=== PATIENT | female | born 1995 | race Caucasian/White ===

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

== ENCOUNTER 2017-08-29 03:44 | Emergency (ER) | payer BC ==
[2017-08-29] MEDS ORDERED: Acetaminophen TAB* 325 MG PO ONE (04:44)
[2017-08-29] MEDS ORDERED: Insulin REGULAR(*) 1 UNITS UNIT IV PUSH ONE ×2 (04:44→06:27)
[2017-08-29] MEDS ORDERED: Metoclopramide IV* 5 MG/ML 2 ML VIAL IV SLOW PU ONE (04:44)
[2017-08-29] MEDS ORDERED: NS 0.9% 1000 ML* 1,000 ML IV ONE (04:45)
[2017-08-29] MEDS ORDERED: Ketorolac INJ* 30 MG/ML 1 ML VIAL IV PUSH ONE (04:45)
[2017-08-29 05:19] LABS: ABS Basophils 0.1 10^3/ul (0-0.2); ABS Eosinophils 0.2 10^3/ul (0-0.6); ABS Lymphocytes 3.2 10^3/ul (1.0-4.8); ABS Monocytes 0.4 10^3/ul (0-0.8); ABS Neutrophils 4.3 10^3/ul (1.5-7.7); ABS Nucleated RBC 0 10^3/ul; Eosinophil % 2.3 % (0-6); Hematocrit 44 % (35-47); Hemoglobin 15.4 g/dl (12.0-16.0); Lymphocyte % 39.1 % (25-47); Mean Corpuscular HGB Conc 35 g/dl (31-36); Mean Corpuscular Hemoglobin 30 pg (27-31); Mean Corpuscular Volume 86 fL (80-97); Mean Platelet Volume 7.9 um3 (7.4-10.4); Nucleated Red Blood Cells % 0.1; Platelet Count 379 10^3/ul (150-450); Red Blood Count 5.07 10^6/ul (4.0-5.4); Red Cell Distribution Width 13 % (10.5-15); White Blood Count 8.1 10^3/ul (3.5-10.8)
[2017-08-29 05:34] LABS: EGFR Non-African American 106.7 (>60)
[2017-08-29 06:04] LABS: Urine Appearance Clear; Urine Blood Negative (Negative); Urine Color Yellow; Urine Ketones 2+ (Negative); Urine Protein Negative (Negative); Urine Specific Gravity 1.038 (1.010-1.030); Urine Urobilinogen Negative (Negative)
[2017-08-29] MEDS ORDERED: Insulin REGULAR(*) 1 UNITS UNIT ONE (06:29)
--- NOTE | 2017-08-29 07:00 | ED ---
Eron Mckeon Thomas, scribed for Debi Sanchez MD on 08/29/17 at 0522 . HPI Diabetic - HPI Summary HPI Summary: The patient is a 22 year old female with a history of Type I DM that developed symptoms of headache, diffuse body aches, intermittent nausea, burning to her chest, and feeling off that began yesterday at approximately 21:00. She denies fever, sore throat, and vomiting. - History Of Current Complaint Chief Complaint: EDHeadache Time Seen by Provider: 08/29/17 04:40 Hx Obtained From: Patient Hx Last Menstrual Period: CURRENT Onset/Duration: Lasting Hours, Still Present Timing: Constant Severity Currently: Moderate Character: Alert Aggravating: Nothing Alleviating: Nothing Associated Signs & Symptoms: Negative - fever, sore throat, vomiting, Nausea Related History: DM I - Allergies/Home Medications Allergies/Adverse Reactions: Allergies Allergy/AdvReac Type Severity Reaction Status Date / Time No Known Allergies Allergy Verified 08/29/17 04:42 PMH/Surg Hx/FS Hx/Imm Hx Endocrine/Hematology History: Reports: Hx Diabetes - DM Type I Respiratory History: Reports: Hx Asthma - OUTGROWN Musculoskeletal History: Denies: Hx Rheumatoid Arthritis, Hx Osteoporosis Sensory History: Denies: Hx Contacts or Glasses, Hx Hearing Aid Opthamlomology History: Denies: Hx Contacts or Glasses Neurological History: Reports: Hx Migraine - OCCASIONAL - Surgical History Surgery Procedure, Year, and Place: nasal repair after fracture - Immunization History Date of Tetanus Vaccine: utd Date of Influenza Vaccine: utd Infectious Disease History: Denies: History Other Infectious Disease, Traveled Outside the [place] in Last 30 Days - Family History Known Family History: Positive: Diabetes - Uncles x 2 - Social History Alcohol Use: None Substance Use Type: Reports: None Smoking Status (MU): Never Smoked Tobacco Review of Systems Positive: Other - "feeling off". Negative: Fever Negative: Sore Throat Positive: Other - Chest burning Positive: Nausea. Negative: Vomiting Positive: Other - Body aches All Other Systems Reviewed And Are Negative: Yes Physical Exam - Summary Physical Exam Summary: VITAL SIGNS: Reviewed. GENERAL: Patient is a well-developed and nourished female who is lying comfortable in the stretcher. Patient is not in any acute respiratory distress. HEAD AND FACE: No signs of trauma. No ecchymosis, hematomas or skull depressions. No sinus tenderness. EYES: PERRLA, EOMI x 2, No injected conjunctiva, no nystagmus. EARS: Hearing grossly intact. Ear canals and tympanic membranes are within normal limits. MOUTH: Oropharynx within normal limits. NECK: She has upper cervical adenopathy. Supple, trachea is midline, no JVD, no carotid bruit, no c-spine tenderness, neck with full ROM. CHEST: Symmetric, no tenderness at palpation LUNGS: Clear to auscultation bilaterally. No wheezing or crackles. CVS: Mild tachycardia. Regular rhythm. S1 and S2 present, no murmurs or gallops appreciated. ABDOMEN: Soft. She has epigastric tenderness. No signs of distention. No rebound no guarding, and no masses palpated. Bowel sounds are normal. EXTREMITIES: FROM in all major joints, no edema, no cyanosis or clubbing. NEURO: Alert and oriented x 3. No acute neurological deficits. Speech is normal and follows commands. SKIN: Dry and warm Triage Information Reviewed: Yes Vital Signs Reviewed: Yes Diagnostics - Laboratory Result Diagrams: 08/29/17 05:05 08/29/17 05:05 Lab Statement: Any lab studies that have been ordered have been reviewed, and results considered in the medical decision making process. - Radiology CXR Xray Interpretation: No Acute Changes - No acute process, pending final report. Radiology Interpretation Completed By: ED Physician Diabetic Course/Dx - Course Course Of Treatment: The patient is a 22 year old female with a history of Type I DM that developed symptoms of headache, diffuse body aches, intermittent nausea, burning to her chest, and feeling off that began yesterday at approximately 21:00. In the ED course, the patient was given acetaminophen, insulin, Toradol, Reglan, and IV fluids. Bloodwork and urinalysis were obtained. CXR shows no acute process. The patient is signed out to Dr. Kennedy at shift change pending Strep, Flu, and disposition. - Diagnoses Provider Diagnoses: Hyperglycemia, Viral syndrome Discharge - Sign-Out/Discharge Documenting (check all that apply): Sign-Out Patient Signing out patient TO: Slick Kennedy - Discharge Plan Condition: Stable Referrals: Malika Ortiz MD [Primary Care Provider] - The documentation as recorded by the Eron enciso Thomas accurately reflects the service I personally performed and the decisions made by me, Debi Sanchez MD.
--- NOTE | 2017-08-29 08:13 | RAD ---
Indication: Fever. Single frontal view of the chest performed at 0445 hours was reviewed. Comparison is made with previous exam dated September 15, 2007. No mediastinal shift is noted. Heart is of normal size and configuration. Lung norton appear clear. IMPRESSION: NO ACTIVE CARDIOPULMONARY DISEASE IS NOTED.
--- NOTE | 2017-08-29 09:10 | ED ---
Dong Mckeon Jennifer, scribed for Slick Kennedy MD on 08/29/17 at 0850 . Progress - Progress Note Progress Note: The patient is awake and feeling better after a night of sleep. Course/Dx - Course Course Of Treatment: . IMPROVED IN ED. DISCUSSED RESULTS WITH THE PATIENT AND HER MOTHER. THE PATIENT HAS BEEN HAVING SPLINTING CHEST PAIN IN THE MIDDLE OF HER CHEST. HER CALVES ARE NON TENDER AND NOT SWOLLEN. WE DISCUSSED GETTING AN EKG AND LABS; TROPONIN AND DDIMER. THE PATIENT DECLINES AT THIS TIME. F/U PMD; RETURN IF WORSE. - Diagnoses Provider Diagnoses: Hyperglycemia, Viral syndrome, Chest pain Discharge - Sign-Out/Discharge Documenting (check all that apply): Receiving Sign-Out Receiving patient FROM: Debi Sanchez - Discharge Plan Condition: Stable Disposition: HOME Patient Education Materials: Chest Pain (ED), Type 1 Diabetes in Adults (ED), Managing Diabetes During Sick Days (ED) Referrals: Malika Ortiz MD [Primary Care Provider] - Additional Instructions: FOLLOW UP WITH YOUR DOCTOR. RETURN TO THE EMERGENCY DEPARTMENT FOR ANY WORSENING OF YOUR CONDITION OR QUESTIONS OR CONCERNS. - Billing Disposition and Condition Condition: STABLE Disposition: HOME The documentation as recorded by the Dong enciso Jennifer accurately reflects the service I personally performed and the decisions made by , Slick Kennedy MD.
[2017-08-29 09:27] VITALS: BP 96/58
== END 2017-08-29 09:25 | disposition home or self-care (01) ==
LOC: ED 03:44
DX: E10.65 Type 1 diabetes mellitus with hyperglycemia (principal); R07.9 Chest pain, unspecified; B34.9 Viral infection, unspecified
CPT/HCPCS: 36415; 71045; 80053; 81003; 82150; 82803; 83605; 83690; 85025; 86140; 86308; 87040; 87502; 87651; 96374; 96375; 99282; A9270-GY; J1885; J2765